=== PATIENT | female | born 1955 | race Caucasian/White ===

== ENCOUNTER 2016-11-21 22:34 | Observation (INO) | payer BC ==
[2016-11-21] MEDS ORDERED: diphenhydrAMINE HCL 50 MG/ML VIAL IV ONE (23:25)
[2016-11-21] MEDS ORDERED: fentaNYL CITRATE INJ 50 MCG/ML AMP IV ONE (23:26)
--- NOTE | 2016-11-22 00:10 | ED.PDOC ---
History of Present Illness - General Chief Complaint: Eye Problems Stated Complaint: super glue in eye Time Seen by Provider: 11/21/16 23:08 Source: patient, RN notes reviewed, Vital Signs reviewed Exam Limitations: no limitations - History of Present Illness Initial Comments: Patient is a 61 y/o female who put Superglue in her right eye instead of her tobramycin drops this AM. She went to see Dr. Bonds who gave her Lotemax Ointment and diluted proparacaine for pain and told her to take her Tramadol 100 mg Q4H and Ibuprofen 400 mg and Tylenol Q4H for pain. She was doing well until about 2100 when her eye started hurting much worse. She comes in with a 10/10 eye pain. The proparacaine is only working for about 5-10 minutes and then it wears off. She is allergic to many narvcotic medications including codeine, morphine, dilaudid, and demerol. They cause "itching inside." Timing/Duration: 24 hours Severity: severe Improving Factors: medication - But only for about 10 minutes Worsening Factors: other - medication wearing off Associated Symptoms: denies symptoms Allergies/Adverse Reactions: Allergies Acetaminophen [From Lorcet ] Allergy (Verified 11/21/16 23:44) Codeine Allergy (Verified 11/21/16 23:44) Hydrocodone Allergy (Verified 11/21/16 23:44) Hydromorphone [From Dilaudid] Allergy (Verified 11/21/16 23:44) Meperidine [From Demerol HCl] Allergy (Verified 11/21/16 23:44) Morphine Allergy (Verified 11/21/16 23:44) Home Medications: Ambulatory Orders Bupropion HCl [Wellbutrin Xl] 300 mg PO DAILY 05/03/16 Famotidine 20 mg PO BID #60 tab 05/03/16 Olmesartan Medoxomil [Benicar] 40 mg PO DAILY 05/03/16 Tobramycin/Dexamethasone 0.3-0.1 % 2 drop RIGHT_EYE TID 11/21/16 Review of Systems - Review of Systems Constitutional: States: no symptoms reported EENTM: States: eye pain, blurred vision, tearing Respiratory: States: no symptoms reported Cardiology: States: no symptoms reported Gastrointestinal/Abdominal: States: no symptoms reported Genitourinary: States: no symptoms reported Musculoskeletal: States: no symptoms reported Skin: States: no symptoms reported Neurological: States: anxiety Endocrine: States: no symptoms reported Hematologic/Lymphatic: States: no symptoms reported All other Systems: Reviewed and Negative Past Medical History (General) - Patient Medical History Hx Asthma: Yes Hx Hypertension: Yes Hx Diabetes: No Hx Gastroesophageal Reflux: Yes Hx Cancer: Yes - hx bladder, kidney x1 Surgical History: appendectomy, cholecystectomy, gastric bypass, tonsillectomy, Hysterectomy, other - Vaccination History Hx Tetanus, Diphtheria Vaccination: No Hx Influenza Vaccination: Yes Hx Pneumococcal Vaccination: No - Social History Hx Tobacco Use: No Hx Alcohol Use: Yes - Female History Patient is a Female of Child Bearing Age (10 -59 yrs old): No Patient : No Family Medical History - Family History Mother Family History: Unknown Living Status: Unknown Physical Exam - Physical Exam General Appearance: Agitated, Anxious, Obvious distress Eye Exam: left normal, bilateral other - superglue on lashes. I did not do fluoriscein as the superglue would skew the results and Dr. Bonds has looked at the eye today. Ears, Nose, Throat: hearing grossly normal Neck: full range of motion, supple Respiratory: normal breath sounds, no respiratory distress Extremity: normal range of motion, non-tender, normal inspection, no pedal edema , no calf tenderness Skin Exam: normal color, warm/dry Progress - Progress Progress: 11/22/16 00:15 Two drops of tetracaine were placed in Patient's eye with relief for only about 10 minutes. Therefore, Patient was given Ativan 0.5 mg IM. I thoroughly discussed this case with Dr. Bonds and the plan was made to cover her with fentanyl since she does not have an allergy to this and to OBS her for pain control since this is not long-acting. Dr. Bonds will come in the morning to examine Patient to see if he can put a healing contact on her eye. - Results/Orders Results/Orders: 11/21/16 22:49 Temperature 97.4 F L Pulse Rate [ 81 left] Respiratory 18 Rate Blood Pressure 157/102 [left] O2 Sat by Pulse 97 Oximetry - EKG/XRAY/CT CT Ordered: No Departure - Departure Clinical Impression: Corneal injury Qualifiers: Encounter type: subsequent encounter Laterality: right Qualified Code(s): S05.01XD - Injury of conjunctiva and corneal abrasion without foreign body, right eye, subsequent encounter Time of Disposition: 00:19 Disposition: Admit Patient Home Medications: Ambulatory Orders Bupropion HCl [Wellbutrin Xl] 300 mg PO DAILY 05/03/16 Famotidine 20 mg PO BID #60 tab 05/03/16 Olmesartan Medoxomil [Benicar] 40 mg PO DAILY 05/03/16 Tobramycin/Dexamethasone 0.3-0.1 % 2 drop RIGHT_EYE TID 11/21/16 Decision To Admit - Decistion To Admit Decision to Admit Reason: Accidental Injury Decision to Admit Date: 11/22/16 Decision to Admit Time: 00:15
[2016-11-22] MEDS ORDERED: fentaNYL CITRATE INJ 50 MCG/ML AMP ONE (00:42)
[2016-11-22] MEDS ORDERED: fentaNYL CITRATE INJ 50 MCG/ML AMP IV ONE ×2 (00:46→01:16)
--- NOTE | 2016-11-22 02:06 | HP ---
SUPERVISING PHYSICIAN: Dre Pratt MD CHIEF COMPLAINT: Right eye pain. HISTORY OF PRESENT ILLNESS: This is a 61 year-old female patient who accidentally put Super Glue in her right eye instead of her Tobramycin drops. She had seen Dr. Bonds, vacuum extractor operator, who gave her Lotemax ointment and diluted Proparacaine for pain and told her to take her Tramadol every 4 hours as well as ibuprofen and Tylenol for pain. She was doing well until later in the evening prior to the date of admission and her pain became out of control. She came to the Emergency Room. She has multiple narcotic allergies so she was given Fentanyl as well as some Benadryl and Zantac. She had no adverse reaction to Fentanyl and her pain was controlled. Dr. Bonds was called and he recommended she be placed in the hospital for observation as well as pain control. She also received some Ativan due to her increase in anxiety over here eye injury. I was called for admission. PAST MEDICAL HISTORY: 1. Seasonal allergies. 2. 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 3. Depression with anxiety. 4. Hypertension. 5. Osteoarthritis. 6. Gastroesophageal reflux disease. 7. recent history of H. pylori that was treated. PAST SURGICAL HISTORY: 1. Tonsillectomy. 2. Facial surgery. 3. Two C-sections. 4. Gastric bypass. 5. Carpal tunnel. 6. Skin cancer surgery. 7. Two foot surgeries. 8. Cholecystectomy. 9. Partial hysterectomy. 10. Appendectomy. 11. Nephrectomy. OUTPATIENT MEDICATIONS: Per EMR and waiting verification. ALLERGIES: 1. Codeine phospate. 2. Dilaudid. 3. Hydrocodone. FAMILY HISTORY: SOCIAL HISTORY: She quit smoking over 20 years ago. She denies any ETOH or illicit drug use. REVIEW OF SYSTEMS: GENERAL: She denies fatigue, fever or weight changes. HEENT: Complains of occasional sinus symptoms with no symptoms today. Her vision has not been altered other than cloudiness from the ophthalmic ointment. RESPIRATORY: Denies coughing, wheezing or shortness of breath. CARDIAC: Denies chest pain, palpitations or tachycardia. ABDOMEN: Denies abdominal pain, constipation, diarrhea, nausea or vomiting. NEUROLOGICAL: Denies headache, dizziness or seizures. SKIN: Denies lesions or rashes. PSYCHIATRIC: She complains of some anxiety. PHYSICAL EXAMINATION: VITAL SIGNS: She is afebrile. Heart rate 76, blood pressure 126/82, respiratory rate 18, 02 saturation 98% on room air. GENERAL: This is a 61 year-old female patient who looks to be in mild pain due to her right eye. HEENT: Normocephalic and atraumatic. Pupils are equal and reactive. Her right upper and lower eyelids are slightly edematous. The right conjunctiva is quite erythematous. Oropharynx is clear. NECK: Supple without mass. CHEST: Clear to auscultation bilaterally. There is equal rise and fall of the chest with inspiration and expiration. CARDIOVASCULAR: Regular rate and rhythm. ABDOMEN: Soft, non-tender, nondistended. Bowel sounds are positive. EXTREMITIES: No cyanosis, clubbing, or edema. NEUROLOGIC: She is awake, alert, and oriented x3. LABORATORY: There are no labs and films to report at this time. ASSESSMENT: 1. Chemical burn of the right cornea from accidental application of Super Glue. 2. Right eye pain due to #1 requiring IV narcotics due to patient's multiple narcotic allergies. 3. Depression with anxiety. 4. Hypertension. 5. Recent history of H. pylori infection. PLAN: We will place the patient in observation. Dr. Bonds will be in to see the patient and do a fluorescein stain of her eye. He has given her an ophthalmic ointment that she is to apply as needed as well as some eyedrops that she has at the bedside. I have ordered some p.r.n. Fentanyl as well as some p.r.n. Ativan. We will monitor her progress and treat her symptoms. I will consult with Dr. Bonds as to how we progress with her discharge planning. We will continue to monitor her closely and followup as needed. Dr. Pratt is the collaborating physician available for consultation. #[id number] [facility]
[2016-11-22] MEDS ORDERED: SODIUM CHLORIDE 0.9% (FLUSH) 10 ML SYG IV PRN (02:35)
[2016-11-22] MEDS: fentaNYL CITRATE INJ 50 MCG/ML AMP IV PRN ×5 (02:51→21:52)
[2016-11-22] MEDS ORDERED: IV SET AND CAP CHANGE INJ INJ SCH (03:00)
[2016-11-22] MEDS ORDERED: IBUPROFEN 200 MG TAB ONE (03:30)
[2016-11-22] MEDS: IBUPROFEN 400 MG TAB PO PRN ×2 (03:33→08:59)
[2016-11-22] MEDS ORDERED: TETRACAINE HCL 0.5% 4 ML BTTL ONE (07:00)
[2016-11-22] MEDS: SODIUM CHLORIDE 0.9% (FLUSH) 10 ML SYG IV SCH ×2 (08:59→20:57)
[2016-11-22] MEDS ORDERED: DEXAMETHASONE RIGHT_EYE SCH (10:30)
[2016-11-22] MEDS ORDERED: TOBRAMYCIN RIGHT_EYE SCH (10:30)
[2016-11-22] MEDS ORDERED: NON-FORMULARY MEDICATION 1 EA MIS (Olmesartan Medoxomil [Benicar] 40 MG) PO SCH (10:30)
[2016-11-22] MEDS: LOTEPREDNOL ETABONATE OP SCH ×3 (10:30→20:57)
[2016-11-22] MEDS: Wellbutrin XL 150 MG TAB PO SCH (11:19)
[2016-11-22] MEDS: FAMOTIDINE 20 MG TAB PO SCH ×2 (11:19→16:19)
[2016-11-22] MEDS: VALSARTAN 80 MG TAB PO SCH (12:44)
[2016-11-22] MEDS: NEOMYCIN RIGHT_EYE SCH ×3 (14:13→20:58)
[2016-11-22] MEDS: POLYMYXIN B RIGHT_EYE SCH ×3 (14:13→20:58)
[2016-11-22] MEDS: DEXAMETHASONE RIGHT_EYE SCH ×3 (14:13→20:58)
[2016-11-22] MEDS ORDERED: MAGNESIUM HYDROXIDE 30 ML UD PO ONE (16:07)
[2016-11-22] MEDS ORDERED: PANTOPRAZOLE SODIUM IV 40 MG VIAL IV SCH (22:00)
[2016-11-23] MEDS: FAMOTIDINE 20 MG TAB PO SCH ×2 (06:41→20:02)
[2016-11-23] MEDS: VALSARTAN 80 MG TAB PO SCH (09:50)
[2016-11-23] MEDS: Wellbutrin XL 150 MG TAB PO SCH (09:50)
[2016-11-23] MEDS: LOTEPREDNOL ETABONATE OP SCH ×3 (09:50→21:01)
[2016-11-23] MEDS: fentaNYL CITRATE INJ 50 MCG/ML AMP IV PRN (09:51)
[2016-11-23] MEDS: SODIUM CHLORIDE 0.9% (FLUSH) 10 ML SYG IV SCH ×2 (10:39→21:00)
[2016-11-23] MEDS ORDERED: diphenhydrAMINE HCL 25 MG CAP PO PRN (11:21)
[2016-11-23] MEDS: NEOMYCIN RIGHT_EYE SCH (11:26)
[2016-11-23] MEDS: DEXAMETHASONE RIGHT_EYE SCH (11:26)
[2016-11-23] MEDS: POLYMYXIN B RIGHT_EYE SCH (11:26)
[2016-11-23] MEDS: predniSONE 10 MG TAB PO SCH (13:25)
[2016-11-23] MEDS: NON-FORMULARY MEDICATION 1 EA MIS TOP SCH ×9 (13:30→21:00)
[2016-11-23] MEDS ORDERED: MOXIFLOXACIN OPHTH ONE (16:00)
[2016-11-23] MEDS ORDERED: KETOROLAC 0.5% OPHTH ONE (16:00)
--- NOTE | 2016-11-23 20:08 | PCM.CORE ---
Physician DVT/VTE - Nurse DVT Assessment & Total Each Risk Factor Represents 2 Points: Age 60-74 Each Risk Factor is 1 Point: Obesity (BMI >25) DVT Assessment Score: 3 - 3-4 High Risk Treatments: Early Ambulation *, Sequential Compression Device
[2016-11-23] MEDS ORDERED: PANTOPRAZOLE SODIUM IV 40 MG VIAL IV SCH (21:00)
--- NOTE | 2016-11-23 21:33 | PN ---
DATE: 11/23/16 SUPERVISING PHYSICIAN: Dre Pratt MD SUBJECTIVE: The patient is sitting in her bed. Dr. Bonds is at the bedside. She continues complaints of eye pain as well as anxiety. The Fentanyl does help with the pain and she is getting quite frequent scheduled dosings. Otherwise she has no chest pain, shortness of breath, nausea or vomiting. OBJECTIVE: VITAL SIGNS: She is afebrile, heart rate 84, blood pressure 150/84, respiratory rate 18, O2 sat is 97%. HEENT: There is still some edema surrounding her right eye. Per Dr. Bonds, she has a 6 mm corneal abrasion that is improving. RESPIRATORY: Clear to auscultation bilaterally. CARDIAC: Regular rate and rhythm. NEUROLOGIC: She is awake, alert and oriented times three. There are no labs or films to report at this time. ASSESSMENT: 1. Chemical burn of the right cornea from accidental application of Super Glue resulting in a 6 mm corneal abrasion. 2. Right eye pain due to number 1 requiring IV narcotics due to pain, multiple narcotic allergies as well as anti-anxiety medications. 3. Depression with anxiety. 4. Hypertension. 5. Recent history of Helicobacter pylori infection. PLAN: We will continue to observe the patient. Dr. Bonds has been here multiple times to see the patient. He has recommended that she discontinue her ophthalmic ointment and she is starting 2 new ophthalmic solutions. He has placed a bandage contact lens in that right eye to protect that abrasion and he will see her in the morning. She may need to be discharged on a Fentanyl patch as well as anti-anxiety medications. I will discuss that with Dr. Pratt for discharge who will continue to treat her symptoms, monitor her progress as well as discussion and recommendations per Dr. Bonds, binding cutter. Dr. Pratt is the collaborating physician and available for consultation. #[id number] [facility]
[2016-11-24] MEDS: NON-FORMULARY MEDICATION 1 EA MIS TOP SCH ×6 (06:52→13:11)
[2016-11-24] MEDS: FAMOTIDINE 20 MG TAB PO SCH (06:52)
[2016-11-24] MEDS: LOTEPREDNOL ETABONATE OP SCH (09:17)
[2016-11-24] MEDS: VALSARTAN 80 MG TAB PO SCH (09:17)
[2016-11-24] MEDS: predniSONE 10 MG TAB PO SCH (09:18)
[2016-11-24] MEDS: SODIUM CHLORIDE 0.9% (FLUSH) 10 ML SYG IV SCH (09:19)
[2016-11-24] MEDS: Wellbutrin XL 150 MG TAB PO SCH (09:19)
[2016-11-24 10:28] VITALS: BP 148/84; TEMP 98.5; O2SAT 98
--- NOTE | 2016-11-24 18:50 | DS ---
SUPERVISING PHYSICIAN: Dre Pratt M.D. DISCHARGE DIAGNOSIS: 1. Chemical burn of the right cornea from accidental application of Super Glue resulting in a 6 mm corneal abrasion. 2. Right eye pain due to number 1 requiring IV narcotics due to pain, multiple narcotic allergies as well as anti-anxiety medications. 3. Depression with anxiety. 4. Hypertension. 5. Recent history of Helicobacter pylori infection. HISTORY OF PRESENT ILLNESS: This is a 61 year-old female patient who accidentally put Super Glue in her right eye instead of her Tobramycin drops. On the night she came to the Emergency Room, she had seen Dr. Bonds, cook camp, earlier in the day and he had given her some Lotemax ointment and diluted Proparacaine for pain, and she was told to take her Tramadol every 4 hours as well as Ibuprofen and Tylenol. She was doing well until very late that evening and she presented to the Emergency Room for extreme right eye pain. She has difficulty controlling the pain as she is allergic to most pain medications. Some Fentanyl was given her in the E. R. as well as some Ativan. It gave her good pain control. I was called for admission to the hospital. HOSPITAL COURSE: The patient was placed in Observation for pain control and Benzodiazepine administration. Over the next 2 evenings her pain was well controlled. In fact, she had her last pain medication on the day prior to discharge at 10:00 AM. Most of her issues were due to her anxiety from the eye pain. Dr. Puma Bonds came to see her daily to evaluate the eye. She had about a 6 mm corneal abrasion. Yesterday, he placed a bandaid contact over her right cornea which provided a good amount of pain control. He also recommended specific drops to be placed in her eye. She has improved overnight and is to be discharged home today. DISCHARGE PLAN: The patient will be discharged home in good condition. She is to resume her previous diet and her previous activity. She is to followup with Dr. Puma Bonds, cook camp, in the morning at 8:00 AM in his office. He has given her instructions about her eye care. She will be leaving for a trip to [facility] on Friday and she is to followup with her primary care physician, Dr. Dye, after return from her vacation. She can return to the hospital or the Emergency Room or Dr. Dye's office for any further problems. DISCHARGE MEDICATIONS: 1. Benicar. 2. Wellbutrin. 3. Pepcid. 4. Tobramycin/dexamethasone ophthalmic drops. 5. Lotemax. 6. Acular. 7. Benadryl. 8. Prednisone steroid taper. 9. Clonazepam. Dr. Pratt is the collaborating physician and available for consultation. #[id number] [facility]
== END 2016-11-24 13:20 | disposition home or self-care (01) ==
LOC: ER 22:34 → MS 11-22 02:06
PROVIDERS: ADMIT Nurse Practitioner Acute Care; ATTEND Nurse Practitioner Acute Care
DX: S05.01XA Injury of conjunctiva and corneal abrasion without foreign body, right eye, initial encounter (principal); T52.8X1A Toxic effect of other organic solvents, accidental (unintentional), initial encounter; T26.61XA Corrosion of cornea and conjunctival sac, right eye, initial encounter; H57.11 Ocular pain, right eye; F32.9 Major depressive disorder, single episode, unspecified; F41.9 Anxiety disorder, unspecified; I10 Essential (primary) hypertension; M19.90 Unspecified osteoarthritis, unspecified site; K21.9 Gastro-esophageal reflux disease without esophagitis; J30.2 Other seasonal allergic rhinitis; Y93.89 Activity, other specified; Y92.009 Unspecified place in unspecified non-institutional (private) residence as the place of occurrence of the external cause; Z79.899 Other long term (current) drug therapy; Z88.6 Allergy status to analgesic agent; Z87.891 Personal history of nicotine dependence; Z85.51 Personal history of malignant neoplasm of bladder; Z90.5 Acquired absence of kidney; Z98.84 Bariatric surgery status; Z90.49 Acquired absence of other specified parts of digestive tract
CPT/HCPCS: G0378; J1200; J2060 ×5; J3010 ×9; J7512 ×2

== ENCOUNTER → 2017-06-16 | Outpatient (CLI) | payer BC | END | disposition home or self-care (01) | LOC: GMAH 16:56 | PROVIDERS: ATTEND Family Medicine | DX: M79.641 Pain in right hand (principal) ==

== ENCOUNTER 2017-11-19 17:39 | Emergency (ER) | payer BC ==
[2017-11-19 17:54] VITALS: BP 162/87; TEMP 96.5; O2SAT 94
[2017-11-19] MEDS ORDERED: CYCLOBENZAPRINE HCL 10 MG TAB PO ONE (18:06)
[2017-11-19] MEDS ORDERED: predniSONE 20 MG TAB PO ONE (18:06)
--- NOTE | 2017-11-19 18:26 | ED.PDOC ---
History of Present Illness - General Chief Complaint: General Stated Complaint: left shoulder pain,tingling left arm Time Seen by Provider: 11/19/17 17:48 Source: patient - History of Present Illness Initial Comments: the patient is a 62-year-old female presenting to emergency room secondary to symptoms of tingling in her left shoulder with radiculopathy down the left arm at times. She is having some muscle spasm to the left of her cervical spine adjacent to C5-T2. She also has some spasm over the left rhomboid muscle. Norvasc of her pain is 2 inches to the left of the cervical spine C7 on the trapezius muscle. She does have significant spasm. There is also spasm over the supraspinatus muscle. She is neurovascularly intact. No recent trauma. No chest pain or shortness of breath. Pain is made worse with some movement of the neck. No rash. No fever. No altered mental status. No chest pain or shortness of breath. No abdominal pain. Timing/Duration: 1 week Severity: moderate Improving Factors: nothing Worsening Factors: nothing Associated Symptoms: denies symptoms Allergies/Adverse Reactions: Allergies Codeine Allergy (Verified 11/21/16 23:44) Hydrocodone Allergy (Verified 11/21/16 23:44) Hydromorphone [From Dilaudid] Allergy (Verified 11/21/16 23:44) Meperidine [From Demerol HCl] Allergy (Verified 11/21/16 23:44) Morphine Allergy (Verified 11/21/16 23:44) Home Medications: Ambulatory Orders Bupropion HCl [Wellbutrin Xl] 300 mg PO DAILY 05/03/16 Famotidine 20 mg PO BID #60 tab 05/03/16 Olmesartan Medoxomil [Benicar] 40 mg PO DAILY 05/03/16 Tobramycin-Dexamethasone [Tobramycin/Dexamethasone 0.3-0.1 %] 1 drop OP TID Loteprednol Etabonate [Lotemax] 0.125 inch OP TID 11/22/16 Clonazepam 0.5 mg PO BID PRN #40 tab 11/24/16 Non-Formulary Medication 0 ea TOP 0700,0900,1100,1300 11/24/16 Non-Formulary Medication 0 ea TOP 1500,1700,1900,2100 11/24/16 Non-Formulary Medication 0 ea TOP QID 11/24/16 diphenhydrAMINE HCL [Benadryl] 25 - 50 mg PO Q6H PRN 11/24/16 predniSONE See Taper PO DAILY #22 11/24/16 predniSONE [Prednisone] 20 mg PO DAILY #5 tab 11/19/17 Review of Systems - Review of Systems Constitutional: States: no symptoms reported EENTM: States: no symptoms reported Respiratory: States: no symptoms reported Cardiology: States: no symptoms reported Gastrointestinal/Abdominal: States: no symptoms reported Genitourinary: States: no symptoms reported Musculoskeletal: States: see HPI Skin: States: no symptoms reported Neurological: States: see HPI Endocrine: States: no symptoms reported Hematologic/Lymphatic: States: no symptoms reported All other Systems: No Change from Baseline Past Medical History (General) - Patient Medical History Hx Seizures: No Hx Stroke: No Hx Asthma: No Hx of COPD: No Hx Congestive Heart Failure: No Hx Pacemaker: No Hx Hypertension: Yes Hx Diabetes: No Hx Gastroesophageal Reflux: Yes Hx Cancer: Yes - Bladder Hx MRSA: No Surgical History: appendectomy, cholecystectomy, Hysterectomy - Vaccination History Hx Tetanus, Diphtheria Vaccination: No Hx Influenza Vaccination: No Hx Pneumococcal Vaccination: Yes - Social History Hx Tobacco Use: No Hx Alcohol Use: No Hx Substance Use: No Hx Physical Abuse: No Hx Emotional Abuse: No - Female History Patient : No Family Medical History - Family History Mother Family History: Unknown Living Status: Unknown Physical Exam - Physical Exam General Appearance: Alert, Comfortable, No apparent distress Eye Exam: bilateral normal Ears, Nose, Throat: hearing grossly normal, normal pharynx Neck: full range of motion, other - see history of present illness. no spinous process tenderness to palpation. No step-offs. Respiratory: lungs clear, normal breath sounds, no respiratory distress, no accessory muscle use Cardiovascular/Chest: normal peripheral pulses, regular rate, rhythm, no edema Peripheral Pulses: radial,right: 2+, radial,left: 2+ Gastrointestinal/Abdominal: non tender, soft Rectal Exam: deferred Back Exam: normal inspection - see history of present illness for the upper back , no CVA tenderness, no vertebral tenderness Extremity: normal range of motion, non-tender, normal inspection, no pedal edema , normal capillary refill Neurologic: homogenizer operator II-XII nml as tested, no motor/sensory deficits, alert, normal mood/affect, oriented x 3 Skin Exam: normal color Comments: Vital Signs - 24 hr 11/19/17 17:49 Temperature 96.5 F L Pulse Rate [ 72 Left Brachial] Respiratory 20 Rate Blood Pressure 162/87 [Left Arm] O2 Sat by Pulse 94 L Oximetry Progress - Progress Progress: 11/19/17 18:26 the patient is a 62-year-old female presenting to the emergency room secondary to what appears to be a mild cervical radiculopathy on the left that does have associated muscle spasm. No recent trauma. The patient is currently placed on prednisone and a muscle relaxer for the next 5-7 days. Topical heat may help as well. Stretching exercises have been given to the patient. She needs to follow-up with her primary care doctor sometime in the next 5 or 6 days for reevaluation. Imaging is not warranted at this time. ER warnings are given presentation of worsening. Departure - Departure Clinical Impression: Cervical radiculopathy Disposition: Discharge to Home or Self Care Condition: Fair Departure Forms: ED Discharge - Pt. Copy, Patient Portal Self Enrollment Instructions: DI for Cervical Radiculopathy Diet: regular diet Activity: increase activity as tolerated Referrals: Pierce Dye MD [Primary Care Provider] - 1-2 Weeks Prescriptions: predniSONE [Prednisone] 20 mg PO DAILY #5 tab Home Medications: Ambulatory Orders Bupropion HCl [Wellbutrin Xl] 300 mg PO DAILY 05/03/16 Famotidine 20 mg PO BID #60 tab 05/03/16 Olmesartan Medoxomil [Benicar] 40 mg PO DAILY 05/03/16 Tobramycin-Dexamethasone [Tobramycin/Dexamethasone 0.3-0.1 %] 1 drop OP TID Loteprednol Etabonate [Lotemax] 0.125 inch OP TID 11/22/16 Clonazepam 0.5 mg PO BID PRN #40 tab 11/24/16 Non-Formulary Medication 0 ea TOP 0700,0900,1100,1300 11/24/16 Non-Formulary Medication 0 ea TOP 1500,1700,1900,2100 11/24/16 Non-Formulary Medication 0 ea TOP QID 11/24/16 diphenhydrAMINE HCL [Benadryl] 25 - 50 mg PO Q6H PRN 11/24/16 predniSONE See Taper PO DAILY #22 11/24/16 predniSONE [Prednisone] 20 mg PO DAILY #5 tab 11/19/17 Additional Instructions: the patient is a 62-year-old female presenting to the emergency room secondary to what appears to be a mild cervical radiculopathy on the left that does have associated muscle spasm. No recent trauma. The patient is currently placed on prednisone and a muscle relaxer for the next 5-7 days. Topical heat may help as well. Stretching exercises have been given to the patient. She needs to follow-up with her primary care doctor sometime in the next 5 or 6 days for reevaluation. Imaging is not warranted at this time. ER warnings are given presentation of worsening.
== END 2017-11-19 18:49 | disposition home or self-care (01) ==
LOC: ER 17:39
DX: M54.12 Radiculopathy, cervical region (principal); I10 Essential (primary) hypertension; K21.9 Gastro-esophageal reflux disease without esophagitis; Z79.899 Other long term (current) drug therapy

== ENCOUNTER → 2019-02-12 | Outpatient (CLI) | payer MEDICARE ==
--- NOTE | 2019-02-12 11:01 | RAD ---
2 radiographs left hip. Radiographs left femur. Two-view radiographs left tibia/fibula. 3 radiographs left ankle. 4 radiographs left knee Indication: M79.605 Comparison: None. Impression: No fracture of the left hip, left femur, left knee, left tibia/fibula, or left ankle identified. Evaluation for fracture is limited given the degree of osteopenia. If high clinical concern for acute fracture, correlation with MRI recommended given its greater sensitivity in the osteopenic patient. If the patient cannot tolerate MRI imaging or more urgent imaging is required, CT could be performed, however it is less sensitive in the osteopenic patient when compared to MRI. Mild left hip osteoarthritis. Moderate to severe osteoarthritis medial knee compartment and patellofemoral compartment with mild/moderate changes lateral compartment. Small knee effusion. MRI could better evaluate for internal derangement as clinically indicated. Spurring inferior margin medial malleolus indicating a remote avulsive injury/sprain. Ankle mortise alignment normal. Scattered osteoarthritis throughout the midfoot. Calcaneal spurring at the Achilles tendon insertion and plantar fascia origin. Mild soft tissue swelling about the ankle. Electronically signed by: Joel Lynch MD 02/12/2019 10:59 AM CDT
== END ==
LOC: RAD 09:22
PROVIDERS: ATTEND Orthopaedic Surgery
DX: M16.12 Unilateral primary osteoarthritis, left hip (principal); M17.12 Unilateral primary osteoarthritis, left knee; M19.072 Primary osteoarthritis, left ankle and foot; M77.32 Calcaneal spur, left foot; M85.80 Other specified disorders of bone density and structure, unspecified site

== ENCOUNTER → 2020-07-03 | Outpatient (CLI) | payer MEDICARE ==
--- NOTE | 2020-07-03 13:48 | RAD ---
EXAM DESCRIPTION: Pelvis CLINICAL HISTORY: 65 years Female, PAIN IN LEFT HIP COMPARISON: None. FINDINGS: Bony pelvic ring is intact with normal mineralization. Each hip joint normally maintained. Mild degenerative changes at the L5 and L5-S1 level noted. The SI joints are normal. Superior and inferior pubic rami normal bilaterally. IMPRESSION: Negative pelvis one view. Electronically signed by: Ran Cuello MD 07/03/2020 1:47 PM [facility]
--- NOTE | 2020-07-03 13:50 | RAD ---
EXAM DESCRIPTION: Knee,Left Complete CLINICAL HISTORY: 65 years, Female, PAIN IN LEFT KNEE COMPARISON: February 12, 2019 TECHNIQUE: Four views left knee FINDINGS: Moderately advanced degenerative joint space narrowing and subchondral sclerosis medial joint compartment left knee is present. Small joint effusion is evident. Advanced patellofemoral disease particularly lateral articular surface is present with at least mild lateral subluxation of the patella. No fracture or dislocation noted. Marginal osteophytes involving the articular margins of the femoral condyles noted on the axial patellar view. No fracture or dislocation evident. IMPRESSION: 1. Moderately advanced degenerative changes medial joint compartment and lateral patellofemoral articulation with small joint effusion. Electronically signed by: Ran Cuello MD 07/03/2020 1:49 PM [facility]
== END ==
LOC: RAD 09:20
PROVIDERS: ATTEND Orthopaedic Surgery
DX: M25.552 Pain in left hip (principal); M17.12 Unilateral primary osteoarthritis, left knee; M25.462 Effusion, left knee